=== PATIENT | female | born 1975 | race Caucasian/White ===

== ENCOUNTER → 2016-09-30 | Outpatient (CLI) | payer MEDICAID | LOC: BMCIMAGING 09:44 | DX: Z12.31 Encounter for screening mammogram for malignant neoplasm of breast (principal) | CPT/HCPCS: G0202 ==

== ENCOUNTER → 2017-10-10 | Outpatient (CLI) | payer MEDICAID | LOC: BMCIMAGING 14:22 | DX: Z12.31 Encounter for screening mammogram for malignant neoplasm of breast (principal) ==

== ENCOUNTER → 2017-11-29 | Outpatient (CLI) | payer MEDICAID | LOC: FIMAGING 12:49 | PROVIDERS: ATTEND Obstetrics & Gynecology Gynecology | DX: Z01.818 Encounter for other preprocedural examination (principal); N83.01 Follicular cyst of right ovary ==

== ENCOUNTER → 2018-10-11 | Outpatient (CLI) | payer MEDICAID | LOC: BMCIMAGING 13:10 | PROVIDERS: ATTEND Advanced Practice Midwife | DX: Z12.31 Encounter for screening mammogram for malignant neoplasm of breast (principal) ==

== ENCOUNTER → 2018-10-23 | Outpatient (CLI) | payer MEDICAID | LOC: BMCIMAGING 10:04 | PROVIDERS: ATTEND Advanced Practice Midwife | DX: N63.13 Unspecified lump in the right breast, lower outer quadrant (principal); R92.8 Other abnormal and inconclusive findings on diagnostic imaging of breast ==